=== PATIENT | female | born 1975 | race Caucasian/White ===

== ENCOUNTER 2018-06-02 18:50 | Emergency (ER) | payer OTHER ==
[~2018-06-02] VITALS: Ht 160 cm; Wt 90.7 kg
[2018-06-02 19:51] LABS: ABSOLUTE NEUTROPHILS 6.7 thou/uL (1.4-8.2); BASOPHILS 0.6 % (0.0-2.0); EOSINOPHILS 0.3 % (0.0-3.0); HEMATOCRIT 40.4 % (37.0-47.0); HEMOGLOBIN 14.3 gm/dL (12.0-15.0); LYMPHOCYTES 15.3 % (24.0-44.0); MCH 31.5 pg (26.0-34.0); MCHC 35.3 g/dL (28.0-37.0); MCV 89.3 fL (80.0-100.0); MONOCYTES 6.2 % (1.0-8.0); PLATELET COUNT 314 thou/uL (150-400); POLYS 77.6 % (36.0-66.0); RBC 4.53 mil/uL (4.20-5.00); RDW 13.5 % (10.5-14.5); WBC 8.6 thou/uL (4.0-11.0)
[2018-06-02 19:54] LABS: ANION GAP 12 mmol/L (7-16); BUN 11 mg/dL (7-18); CALCIUM 8.6 mg/dL (8.5-10.1); CHLORIDE 99 mmol/L (98-107); CO2 24 mmol/L (21-32); CREATININE 0.8 mg/dL (0.6-1.0); GLUCOSE 110 mg/dL (74-106); POTASSIUM 3.7 mmol/L (3.5-5.1); SODIUM 135 mmol/L (136-145)
[2018-06-02 20:03] LABS: ALBUMIN 3.7 g/dL (3.4-5.0); SGOT 20 U/L (15-37); SGPT 26 U/L (30-65); TOTAL BILIRUBIN 0.5 mg/dL (<0.1-1.0); TOTAL PROTEIN 7.8 g/dL (6.4-8.2); TROPONIN-I <0.06 ng/mL (<0.06)
[2018-06-02] MEDS ORDERED: IBUPROFEN 400400 M2 PO (23:04)
[2018-06-02 23:22] VITALS: BP 113/79
--- NOTE | 2018-06-03 17:06 | EKG ---
[place] [address] [address] [facility] [place] [address] ELECTROCARDIOGRAM REPORT Name: MALIKASIDNEYJULIANESAI Room #: DEP Noel#: [id number] ������������������ Admission: 06/02/18 ������������������ Attend Phys: Discharge: 06/02/18 ������������������ Date of : 79 Report #: [id number] ����������������������������������������������������������������� [id number] THIS REPORT FOR: //name// [facility] ED Test Date: 2018-06-02 Test Time: 19:04:51 Pat Name: SAI RODRIGUEZ Department: Room: Gender: F Glass [employer]oother: aj : 1975 Requested By: Germaine Delacruz Order Number: [id number] MD: Lorenzo Kennedy Measurements Intervals [place] Rate: 132 P: 32 WA: 142 QRS: -39 QRSD: 89 T: 29 QT: 294 QTc: 436 Interpretive Statements Sinus tachycardia Inferior infarct, old No previous ECG available for comparison Electronically Signed On 06-03-2018 17:06:34 CDT by Lorenzo Kennedy [email or web address] ��������������������������������������������� <ELECTRONICALLY SIGNED> ���������������������������������������� By: Lorenzo Kennedy MD, [facility] ��������������������������������������������� 06/03/18 1706 1904 03 Lorenzo Kennedy MD, FACC /EPI
== END 2018-06-02 23:23 | disposition home or self-care (01) ==
LOC: ER 18:50
PROVIDERS: Student in an Organized Health Care Education/Training Program
DX: R06.02 Shortness of breath (principal); R00.2 Palpitations